=== PATIENT | female | born 2000 | race Caucasian/White ===

== ENCOUNTER 2023-10-05 22:52 | Emergency (ER) | payer MEDICAID, OTHER ==
[~2023-10-05] VITALS: Ht 170.2 cm; Wt 63.5 kg
[2023-10-05 22:57] VITALS: BP 133/91; TEMP 98.6; O2SAT 98
== END 2023-10-05 23:23 | disposition left against medical advice (07) ==
LOC: ER 22:57
DX: R07.89 Other chest pain (principal)